=== PATIENT | male | born 1940 | race Caucasian/White ===

== ENCOUNTER 2016-10-18 15:00 | Inpatient (IN) | payer MEDICARE, OTHER ==
[~2016-10-18] VITALS: Ht 182.9 cm; Wt 94.0 kg
--- NOTE | ~2016-10-18 | ENPV ---
Vascular Lower Arterial Plethysmography Procedure Demographics Patient Name JANELL BERNARDO Date of Study 10/20/2016 Patient Number [id number] Gender Male Date of 1940 Age 75 Visit Number [id number] Height 72 Accession Number [id number] Weight 211.87 Referring Sixto Moody MD Interpreting Sixto Moody MD Physician Physician Physician Ordering Physician Sixto Moody MD Gas Plant Dispatcher Station Manager Chuck Hugo [facility] Conclusions Summary Ankle brachial index on the right is 1.27 no significant arterial disease at rest. Ankle brachial index on the left is 0.73 moderate arterial disease at rest. Toe waveforms and pressures not obtained due to movement artifact. Procedure Type of Study: Extremities Arteries:Lower Arterial Plethysmography, Ankle/Brachial Indicies. Indications for Study:Claudication. Additional Indications:Post angiogram Appropriate Use Criteria:9 Allergies - No known allergies. Blood Pressure:Right arm 133/ mmHg.Left arm 139/ mmHg. Study Location:Inpatient Portable. Technical Quality:Adequate visualization. Risk Factors - The patient's risk factor(s) include: diabetes mellitus and arterial hypertension. - The patient's last creatinine was 0.7 mg/dl. Velocities are measured in cm/s ; Diameters are measured in cm Pressures + +----+ +---------+--------+ + + ! ! !Right ! !Left ! ! ! + +----+ +---------+--------+ + + !Location ! !Pressure !Ratio ! !Pressure !Ratio ! + +----+ +---------+--------+ + + !Ankle PT ! !176 !1.27 ! !61 !0.44 ! + +----+ +---------+--------+ + + !DP ! !139 !1 ! !102 !0.73 ! + +----+ +---------+--------+ + + - Brachial Pressure:Right: 133.Left:139. - NOAH:Right: 1.27.Left: 0.73. Signature dtt: ABIMAEL CROSS dtd: 10/20/16 1059 Physician Self Edit
--- NOTE | ~2016-10-18 | OR ---
PATIENT'S NAME: JANELL BERNARDO [facility] AGE: 75 Y [address] ROOM: [address] [address] LOCATION: GPCU ADMIT DATE: 10/18/2016 OR/Procedure Report DISCHARGE DATE: FAMILY PHYSICIAN: Esvin Orozco MD ATTENDING PHYSICIAN: ABIMAEL HENSON SURGEON: Abimael Henson MD OIL SPRAYER: DATE OF PROCEDURE: 10/19/2016 PREOPERATIVE DIAGNOSIS: Critical ischemia of the right lower extremity. POSTOPERATIVE DIAGNOSES: 1. Superficial femoral artery near occlusion. 2. Right popliteal artery occlusion with collateralized flow to the leg. PROCEDURES PERFORMED: 1. Aortogram. 2. Right lower extremity runoff. 3. Superficial femoral artery arthrectomy and balloon angioplasty with drug- coated balloon. HEARING INSTRUMENT SPECIALIST: dental laboratory worker staff. ESTIMATED FLUID LOSS: 50 mL. DESCRIPTION OF PROCEDURE: The patient was brought to the woven label designer, placed supine on the woven label designer table, and prepped and draped in the sterile manner. Preoperative time-out was performed. The patient received preoperative antibiotics. We used ultrasound guidance to enter the common femoral on the left. This was a heavily calcified lesion. We used a micropuncture needle, followed by micropuncture wire, followed by a micropuncture sheath. We exchanged for a 5-German short sheath using Seldinger technique. We went up in the aorta using a 0.035 Glidewire as well Omni Flush catheter. We performed an angiogram which showed patent common, external, and internal iliac arteries as well as patent renal vessels. We went up and over the area of bifurcation and parked our catheter in the common femoral on the right. We performed an angiogram of the right lower extremity. This showed a high-grade near-occlusive lesion of the right SFA. The distal SFA was patent. The popliteal was patent behind the knee, and then it quick and abruptly occluded with collateralized flow to the tibial vessels with no named vessels in the upper part of the leg, only collateralized flow. We exchanged the 5-German short sheath for a 6-German Destination sheath. We then gave 5000 units of heparin. The patient would have this reversed at the end of the case with the use of protamine. We were able to cross the lesion with a 0.035 Glidewire as well as a TrailBlazer catheter. We then exchanged for a 7-German Spider PATIENT'S NAME: JANELL BERNARDO [facility] AGE: 75 Y [address] ROOM: [place] [address] [facility] ADMIT DATE: 10/18/2016 OR/Procedure Report DISCHARGE DATE: FAMILY PHYSICIAN: Esvin Orozco MD ATTENDING PHYSICIAN: ABIMAEL HENSON retrieval device. We then performed a series of angioplasties, initially with a 4 x 40 balloon. We then performed an arthrectomy of the SFA, shaving off a large amount of calcified plaque from the SFA. We then finally angioplastied with a 5 x 120 and then a 5 x 40 drug-coated balloon in the SFA, relieving the occlusion of the SFA. We then recaptured our Spider. There was a considerable amount of calcified plaque trapped in the Spider. The runoff was not affected after we did our completion angiogram. We were trying to assess whether or not we could cross the popliteal lesion into the tibial, but there did not appear to be any named vessel that we could enter. We removed the sheath. We held pressure for 10 minutes. The patient tolerated the procedure well and was transferred to the recovery room and then back to the floor. ABIMAEL HENSON MD FKM/modl /[id number] d: 10/19/16 1456 t: 10/19/16 1712, OPERATIVE SUMMARY
--- NOTE | ~2016-10-18 | CON ---
PATIENT'S NAME: JANELL BERNARDO [facility] AGE: 75 Y [address] ROOM: [place] [address] LOCATION: GPCU ADMIT DATE: 10/18/2016 Consultation DISCHARGE DATE: FAMILY PHYSICIAN: Esvin Orozco MD ATTENDING PHYSICIAN: FRANSISCO HENSON DATE OF CONSULTATION: 10/18/2016 REFERRING PHYSICIAN: JILL MADDOX MD REASON FOR CONSULTATION: Medical management. HISTORY OF PRESENT ILLNESS: The patient is a 75-year-old male, very poor historian, who has a past medical history of coronary artery disease, status post stenting approximately 18 months ago as well as recently diagnosed diabetes. The patient has not been on any medicines in recent months because "he trusted [place] [place]" to take care of him. He developed discoloration and discomfort of his right lower extremity toes and was seen in [place]. Apparently, some sort of a test was performed and he was found to have critical limb ischemia. He is scheduled for an angiogram with Dr. Henson tomorrow. At this point, his only complaint is some pain at the right lower extremity which indeed I do not appreciate any significant pulses. He denies any chest pain, nausea, vomiting, diaphoresis shortness of breath, or palpitations. REVIEW OF SYSTEMS: All systems have been reviewed and are negative aside from pertinent positives mentioned above. PAST MEDICAL HISTORY: This is likely incomplete as the patient is not a very good historian. 1. Coronary artery disease, status post stenting. 2. Recently diagnosed diabetes, not yet treated. SURGICAL HISTORY: The patient reports that he has had removal of "bone cancer" from his right lower extremity in a very distant past. FAMILY HISTORY: Family history was reviewed and is noncontributory due to advanced age and known underlying medical problems. PATIENT'S NAME: JANELL BERNARDO [facility] AGE: 75 Y [address] ROOM: [address] [address] LOCATION: GPCU ADMIT DATE: 10/18/2016 Consultation DISCHARGE DATE: FAMILY PHYSICIAN: Esvin Orozco MD ATTENDING PHYSICIAN: FRANSISCO HENSON SOCIAL HISTORY: The patient denies any history or ongoing toxic habits. CURRENT MEDICATIONS: Current medications reconciled are, 1. Ascorbic acid. 2. Aspirin. 3. Colace. 4. Hydrocodone with acetaminophen. 5. NovoLog 70/30, 25 units a.m. and 15 units p.m. 6. [place]-3. 7. Fish oil. 8. Pentoxifylline. 9. MiraLAX powder. PHYSICAL EXAMINATION: VITAL SIGNS: Temperature 97.6, pulse is 68, respirations 19, blood pressure is 167/87, saturating 97% on room air. GENERAL: Appears as a well-developed, well-nourished elderly male, nontoxic, in no acute distress. NEUROLOGICAL: Nonfocal. HEENT: Eye exam shows pupils are equal and reactive to light. LYMPHATIC: No cervical lymphadenopathy. ENDOCRINE: No thyromegaly. LUNGS: Clear to auscultation bilaterally. HEART: Rate is regular with 2/6 systolic murmur appreciated. GI: Abdomen is soft, nontender, nondistended. : Reveals no costovertebral angle tenderness. VASCULAR: Absent pulses at DP and posterior tibial arteries with cyanotic discoloration of his distal toes in the right lower extremity. SKIN: Warm and dry. MUSCULOSKELETAL: No muscle or joint abnormalities. LABORATORY DATA: Review of the lab studies from today shows no significant abnormalities aside for glucose in 133 to 144 range. IMPRESSION AND RECOMMENDATIONS: This is a 75-year-old male who will undergo an angiogram for right lower extremity ischemia. At this point, the problems to be addressed are 1. Type 2 diabetes. We will put the patient on a sliding scale for now and hold off on his 70/30 given anticipation of a procedure and n.p.o. 2. Coronary artery disease. The patient should at least be on aspirin and we will continue his aspirin after the procedure tomorrow. 3. Pain control with mild doses of opioids. PATIENT'S NAME: JANELL BERNARDO [facility] AGE: 75 Y [address] ROOM: [place] [address] [facility] ADMIT DATE: 10/18/2016 Consultation DISCHARGE DATE: FAMILY PHYSICIAN: Esvin Orozco MD ATTENDING PHYSICIAN: FRANSISCO HENSON 4. Additional management depend on clinical course. We will follow the patient with you. Total time dedicated to this encounter is 25 minutes. MD AVELINO BELTRE/edmundo /[id number] CC: Fransisco Henson MD d: 10/19/16 0044 t: 10/25/16 191, CONSULTATION REPORT
[2016-10-18] MEDS ORDERED: ASPIRIN LO-DOSE81 MG PO (15:58)
[2016-10-18] MEDS ORDERED: DOCUSATE SODIU100 MG PO (15:58)
[2016-10-18] MEDS ORDERED: NORCO 5-325 TA1 EACH PO (15:59)
[2016-10-18] MEDS ORDERED: FISH OIL-OMEGA1 EACH PO (15:59)
[2016-10-18] MEDS ORDERED: [UNRECOGNIZED DRUG - OTHER] SUB-Q ×2 (16:00→16:01)
[2016-10-18] MEDS ORDERED: PENTOXIFYLLINE400 MG PO (16:01)
[2016-10-18] MEDS ORDERED: MIRALAX PO527 GM/BOT PO (16:02)
[2016-10-18] MEDS ORDERED: VITAMIN C1000 MG PO (16:02)
--- NOTE | 2016-10-18 17:49 | NUR ---
75 Y/O MALE ADMITTED FOR SEVERE ISCHEMIA OF HIS RT LOWER EXTREMITY. THIS HAS BEEN GOING ON FOR THE PAST 3-4 WEEKS WHERE THE PATIENT HAS HAD AN INCREASING AMOUNT OF PAIN AND NOW REDNESS & EDEMA NOTED IN RT FOOT. 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 PT IS A&OX3. ASTRE SPEAKING WITH THE PATIENT, HE HAS NOT BEEN TAKING ANY MEDICATION UP UNTIL ABOUT 1 WEEK AGO WHEN HE BEGAN TO TAKE INSULIN. PT DAUGHTER NOW LIVES WITH HER FATHER TO HELP HIM AND STATES THAT HIS BGLU'S THIS PAST WEEK HAVE BEEN IN THE 200'S WITH HIS LAST AIC OF 12.5. REPORT GIVEN TO PT PRIMARY CARE NURSE ALEA MARIE ADM EDUCATION COMPLETED WITH PT
[2016-10-18 17:52] LABS: BASOPHIL # 0.1 K/uL (0.0-0.2); BASOPHIL % 1.1 %; EOSINOPHIL # 0.2 K/uL (0.0-0.5); EOSINOPHIL % 2.1 %; HEMATOCRIT 42.3 % (37.0-53.0); HEMOGLOBIN 13.9 g/dL (11.0-16.0); IMMATURE GRANULOCYTE % 0.4 %; LYMPHOCYTE # 1.9 K/uL (0.8-4.0); LYMPHOCYTE % 25.6 %; MCH 27.6 pg (27.0-34.0); MCHC 32.9 gm/dL (32.0-36.5); MCV 84.1 fl (83.0-98.0); MONOCYTE # 0.9 K/uL (0.0-1.0); MONOCYTE % 11.2 %; MPV 10.2 fl (9.4-12.4); NEUTROPHIL # (ANC) 4.5 K/uL (1.4-9.0); NEUTROPHIL % 59.6 %; NRBC % 0 /100WBC (0-0.00); PLATELET COUNT 201 K/uL (150-450); RBC 5.03 M/uL (3.50-5.50); RDW-CV 12.7 % (11.9-14.6); WBC 7.6 K/uL (4.0-11.0)
[2016-10-18 17:59] LABS: PROTIME 10.3 SECONDS (9.6-11.1)
[2016-10-18 18:10] LABS: ALK PHOS 70 IU/L (33-138); ALT 27 IU/L (12-78); ANION GAP 11.9 (10.0-19.0); AST 18 IU/L (10-40); BLOOD UREA NITROGEN 18 mg/dL (6-24); CALCIUM 8.3 mg/dL (8.5-10.5); CHLORIDE 108 mMol/L (96-110); CO2 26 mMol/L (22-32); CREATININE 0.7 mg/dL (0.6-1.3); ESTIMATED GFR (MDRD EQUATION) > 60; POTASSIUM 3.9 mMol/L (3.7-5.1); SODIUM 142 mMol/L (135-145); TOTAL BILIRUBIN 0.3 mg/dL (0.0-1.5)
--- NOTE | 2016-10-18 19:17 | NUR ---
PATIENT ADMITTED TO PCU THIS SHIFT. VSS, SATS MID 90'S ON RA. DOPPLED PULSES TO BILATERAL LOWER EXTREMITIES. PATIENT TRANSFERED TO BED W/ 1 ASSIST AND CANE. FAMILY AT BEDSIDE. DR MADDOX CONSULTED, AND ROUNDED ON PATIENT.
--- NOTE | 2016-10-19 04:57 | NUR ---
Significant Event:A/Ox3. Afebrile. Hypertensive SBP 150-170s/80s. O2 sats great on RA. Pulses very faint to palpation doppler very well. Numbness and tingling to bilateral lower extremities. NPO since midnight for aortagram with runoff today, time unknown. One tab norco x1 at 2245 for pain with relief noted. Follow up:Continue to monitor pulses and LE.
--- NOTE | 2016-10-19 10:58 | NUR ---
Diabetes consult; Patient with Type II diabetes and admitted with Right lower extremity ischemia. Current A1C is 12%. The patient reports he was placed on 70/30 by his PCP, Dr. Gonzalez last Tuesday. Patient has a glucometer and lives with his daughter that is a nurse. Reports his daughter tests his blood sugars at least once a day. Diabetes survival skills assessment was completed. Patient denies any questions. Will continue to follow.
--- NOTE | 2016-10-19 16:21 | NUR ---
Introduced self and role of care management to pt. He lives in [place] and with one of his daugters. HE states one is a BRICK SETTER and the other is a nurse at the hospital. He states prior to coming in he is active but lonely lost his last May. I did ask about his diabetes and he has known he has had it but just was trusting in the lord. He states he believes they may need to do more regarding his ischemic foot. WIll continue to follow and assist as needed.
--- NOTE | 2016-10-19 16:41 | NUR ---
Significant Event: A/O X 3. NORCO FOR PAIN CONTROL. AORTAGRAM WITH RUNNOFF, BALLOON TO RT. LEG VESSEL VIA LT. GROIN SITE. DOPPLING FERNANDO. LOWER FEET. AFEBRILE. HR SR IN 70'S. SBP VARIES FROM 140-190'S. LABETALOL IV X 1. SBP >170'S. INITIATED LISINOPRIL. 02 SATS 94% ON ROOM AIR. NO RESP. DISTRESS NOTED. Follow up: NS AT 100 ML/HR UNTIL 0100. CONT. TO MONITER RT. LOWER EXT. CIRCULATION.
--- NOTE | 2016-10-20 04:50 | NUR ---
Significant Event: PATIENT IS A/O X3. VSS. HR 70-90'S. SBP 140-150'S. AFEBRILE. 02 SATS IN MID 90'S ON RA. NO C/O PAIN. LUNGS CLEAR/DIM TO DIM THROUGHOUT. UP WITH SBA TO RESTROOM. USES BARROS. BOWELS ACTIVE. BM X2. FERRARA PLACED DUE TO URINARY RETENTION. LEFT GROIN DRESSING STILL C/D/I. NO HEMATOMA NOTED. IV TO LEFT FOREARM SL. PULSES DOPPLED BUT OTHERWISE CSM WNL. PATIENT HAD C/O INDIGESTION. TWO TABS TUMS GIVEN X1 WITH RELIEF. STARTED ON TID TUMS WITH MEALS. ON ACHS ACCUCHECKS. Follow up: CONTINUE TO MONITOR PER PLAN OF CARE.
[2016-10-20 05:09] LABS: BASOPHIL # 0.1 K/uL (0.0-0.2); BASOPHIL % 0.7 %; EOSINOPHIL % 0.2 %; HEMATOCRIT 44.2 % (37.0-53.0); HEMOGLOBIN 14.7 g/dL (11.0-16.0); IMMATURE GRANULOCYTE % 0.4 %; LYMPHOCYTE # 1.2 K/uL (0.8-4.0); LYMPHOCYTE % 11.3 %; MCH 27.7 pg (27.0-34.0); MCHC 33.3 gm/dL (32.0-36.5); MCV 83.2 fl (83.0-98.0); MONOCYTE # 0.9 K/uL (0.0-1.0); MONOCYTE % 8.2 %; MPV 10.2 fl (9.4-12.4); NEUTROPHIL # (ANC) 8.4 K/uL (1.4-9.0); NEUTROPHIL % 79.2 %; NRBC % 0 /100WBC (0-0.00); PLATELET COUNT 209 K/uL (150-450); RBC 5.31 M/uL (3.50-5.50); RDW-CV 12.5 % (11.9-14.6); WBC 10.6 K/uL (4.0-11.0)
[2016-10-20 05:18] LABS: ALBUMIN 3.1 gm/dL (3.5-5.0); ANION GAP 15.3 (10.0-19.0); BLOOD UREA NITROGEN 11 mg/dL (6-24); CALCIUM 8.5 mg/dL (8.5-10.5); CHLORIDE 106 mMol/L (96-110); CO2 22 mMol/L (22-32); CREATININE 0.8 mg/dL (0.6-1.3); ESTIMATED GFR (MDRD EQUATION) > 60; PHOSPHORUS 2.7 mg/dL (2.5-4.9); POTASSIUM 4.3 mMol/L (3.7-5.1); SODIUM 139 mMol/L (135-145)
[2016-10-20] MEDS ORDERED: PRINIVIL (ZESTRI5 MG PO (13:07)
[2016-10-20] MEDS ORDERED: FLOMAX0.4 MG PO (13:08)
--- NOTE | 2016-10-20 14:18 | NUR ---
Discharge Note: Patient discharged to home. VSS. Patient refused vaccinations and also refused to have diabetic teaching. He was given teaching about diabetic diet and also sent with a diabetic education bootlet. Tiera teaching given for new medications. Patient verblized understanding of discharge.
== END 2016-10-20 13:20 | disposition disaster alternative care site (69) | DRG 271 ==
LOC: GPCU 15:10
PROVIDERS: ADMIT Surgery Vascular Surgery
PROC: 04CK3ZZ Extirpation of Matter from Right Femoral Artery, Percutaneous Approach (ICD-10-PCS; principal; 2016-10-19)
PROC: 047K3Z1 Dilation of Right Femoral Artery using Drug-Coated Balloon, Percutaneous Approach (ICD-10-PCS; principal; 2016-10-19)
DX: I70.228 Atherosclerosis of native arteries of extremities with rest pain, other extremity (principal); I70.92 Chronic total occlusion of artery of the extremities; E11.65 Type 2 diabetes mellitus with hyperglycemia; I10 Essential (primary) hypertension; E78.5 Hyperlipidemia, unspecified; Z95.5 Presence of coronary angioplasty implant and graft; Z87.891 Personal history of nicotine dependence; Z79.82 Long term (current) use of aspirin; Z79.4 Long term (current) use of insulin; R33.9 Retention of urine, unspecified
CPT/HCPCS: C1714; C1725; C1769; C1884; C1887; J0690; J1644; J2250; J2720; J3010; J7030; J7050